=== PATIENT | female | born 1980 | race Caucasian/White ===

== ENCOUNTER → 2017-10-10 | Outpatient (CLI) | payer OTHER ==
[~2017-10-10] VITALS: Ht 160 cm; Wt 88.3 kg
[2017-10-10 19:33] VITALS: BP 112/60
== END | disposition home or self-care (01) ==
LOC: IVINF 19:00
DX: Z34.81 Encounter for supervision of other normal pregnancy, first trimester (principal); Z31.82 Encounter for Rh incompatibility status; Z3A.09 9 weeks gestation of pregnancy; Z67.91 Unspecified blood type, Rh negative
CPT/HCPCS: 96372; J2790